=== PATIENT | female | born 1960 ===

== ENCOUNTER 2017-07-13 09:54 | Outpatient (CLI) | payer OTHER ==
[~2017-07-13] VITALS: Ht 152.4 cm; Wt 73.5 kg
== END 2017-07-13 10:15 | disposition home or self-care (01) ==
LOC: OFIC 805 09:54
DX: J30.89 Other allergic rhinitis (principal)

== ENCOUNTER 2018-08-02 14:17 | Outpatient (CLI) | payer OTHER ==
[~2018-08-02] VITALS: Ht 152.4 cm; Wt 72.6 kg
== END 2018-08-02 14:35 | disposition home or self-care (01) ==
LOC: OFIC 805 14:17
DX: R49.0 Dysphonia (principal); J38.1 Polyp of vocal cord and larynx

== ENCOUNTER 2018-08-12 14:43 | Outpatient (CLI) | payer OTHER ==
[~2018-08-12] VITALS: Ht 152.4 cm; Wt 72.6 kg
== END 2018-08-12 15:00 | disposition home or self-care (01) ==
LOC: OFIC 805 14:43
DX: J30.89 Other allergic rhinitis (principal); R49.0 Dysphonia; J38.1 Polyp of vocal cord and larynx

== ENCOUNTER 2018-09-09 14:52 | Outpatient (CLI) | payer OTHER ==
[~2018-09-09] VITALS: Ht 152.4 cm; Wt 72.6 kg
== END 2018-09-09 15:10 | disposition home or self-care (01) ==
LOC: OFIC 805 14:52
DX: J30.89 Other allergic rhinitis (principal); R49.0 Dysphonia; J38.1 Polyp of vocal cord and larynx